=== PATIENT | female | born 1990 | race Caucasian/White ===

== ENCOUNTER 2020-05-29 05:45 | Inpatient (IN) | payer OTHER ==
[~2020-05-29] VITALS: Ht 161.3 cm; Wt 96.8 kg
[2020-05-29] VITALS (54 sets, daily range): BP systolic 98–163; BP diastolic 51–87; PULSE 55–115; TEMP 97.6–99.4
--- NOTE | 2020-05-29 05:45 | NUR ---
PT ARRIVED TO THE UNIT AMBULATORY WITH SPOUSE WITH COMPLAINTS OF CONTRACTIONS. ORIENTED TO ROOM, CHANGED INTO GOWN, EFMX2 APPLIED, VS OBTAINED, SVE PERFORMED.
--- NOTE | 2020-05-29 06:43 | NUR ---
Dr. Bartholomew on unit. Reviews FHR strip. Pt able to ambulate with intermittent monitoring. Pt taken off monitors to BB and ambulate.
[2020-05-29] MEDS ORDERED: OSCAL 500 TAB500 MG PO (07:02)
[2020-05-29] MEDS ORDERED: IRON 27 MG PO (07:06)
--- NOTE | 2020-05-29 07:30 | NUR ---
Pt back to monitors on birthing ball. Requesting epidural. LR bolus infusing.
[2020-05-29] MEDS ORDERED: PRENATAL TABLET PO (07:32)
[2020-05-29] MEDS ORDERED: PRENATAL PO (07:38)
[2020-05-29 07:51] LABS: BASO % 0.4 % (0.0-2.0); EOS # 0.1 (0.0-0.7); EOS % 0.7 % (0-4.0); GRAN # 7.4 (1.4-6.5); GRAN % 69.3 % (42.2-75.2); HEMATOCRIT 37.6 % (37.0-47.0); HEMOGLOBIN 12.9 g/dl (12.5-16.0); LYMPH # 2.2 (1.2-3.4); MEAN CELL VOLUME 90 fl (80.0-100.0); MEAN CORPUSCULAR HEMOGLOBIN 31 pg (27.0-31.0); MEAN CORPUSCULAR HGB CONC 34 g/dl (33.0-37.0); MEAN PLATELET VOLUME 14.3 fl (7.4-10.4); MONO # 0.8 (0.1-0.6); MONO % 7.8 % (1.7-9.3); PLATELET COUNT 107 K/mm3 (130-400); RED BLOOD COUNT 4.17 M/mm3 (4.10-5.30); REDCELL DISTRIBUTION WIDTH-CV 13.9 % (11.5-14.5)
--- NOTE | 2020-05-29 08:15 | NUR ---
Pt sitting upright for epidural placement. Difficulty tracing FHR due to maternal position. Rn at bedside adjusting monitors. FHR audible.
--- NOTE | 2020-05-29 16:00 | NUR ---
Roles on unit since 1400. Reviews FHR strip. 1600-Orders for Ancef 2 g. Physician discusses FHR strip and possible c/s with fever.
--- NOTE | 2020-05-29 16:47 | NUR ---
Scalp stim performed. Acceleration noted.
--- NOTE | 2020-05-29 17:04 | NUR ---
Pt taken off monitors to OR.
[2020-05-30 01:00] VITALS: BP 107/59; PULSE 72; TEMP 98
--- NOTE | 2020-05-30 01:00 | NUR ---
LOOKED OVER MAR WITH CHARGE, Mahamed BARNES RN BECAUSE THERE IS A MEDICATION (GENTAMICIN) THAT WAS SCHEDULE FOR 0500 TODAY, BUT IT SAYS IV Q 8 HOURS AND THE LAST DOSE WAS GIVE AT 1715. Mahamed BARNES RN ADVISED THAT IT WAS OKAY TO GIVE MEDICINE NOW AT 0100 DUE TO THAT BEING 8 HRS FOR THE LAST DOSE. I WAS UNABLE TO MAKE A NOTE ABOUT THIS IN THE MAR, SO I AM DOCUMENTING IT NOW. Onel ROBLEDO RN.
[2020-05-30 04:34] VITALS: BP 115/54; PULSE 91; TEMP 98.3
--- NOTE | 2020-05-30 06:27 | NUR ---
BEDSIDE REPORT RECEIVED FROM OFF GOING RNLEO. CARE TAKEN OVER BY THIS RN. DISCHARGE BOARD UPDATED, POC REVIEWED.
[2020-05-30 06:52] LABS: BASO % 0.3 % (0.0-2.0); EOS # 0.1 (0.0-0.7); EOS % 0.7 % (0-4.0); GRAN # 11.8 (1.4-6.5); GRAN % 79.8 % (42.2-75.2); LYMPH # 1.8 (1.2-3.4); MEAN CELL VOLUME 92 fl (80.0-100.0); MEAN CORPUSCULAR HGB CONC 34 g/dl (33.0-37.0); MEAN PLATELET VOLUME 14.2 fl (7.4-10.4); MONO % 6.7 % (1.7-9.3); PLATELET COUNT 94 K/mm3 (130-400); RED BLOOD COUNT 3.16 M/mm3 (4.10-5.30); REDCELL DISTRIBUTION WIDTH-CV 14.1 % (11.5-14.5)
[2020-05-30 06:59] LABS: HEMATOCRIT 28.9 % (37.0-47.0); HEMOGLOBIN 9.8 g/dl (12.5-16.0); MEAN CORPUSCULAR HEMOGLOBIN 31 pg (27.0-31.0)
[2020-05-30 07:03] VITALS: BP 121/80; PULSE 75; TEMP 97.6
[2020-05-30 11:06] VITALS: BP 116/77; PULSE 76; TEMP 98.1
[2020-05-30 16:18] VITALS: BP 121/59; PULSE 79; TEMP 97.6
[2020-05-30 19:30] VITALS: BP 121/78; PULSE 69; TEMP 98
[2020-05-31 08:08] VITALS: BP 124/63; PULSE 79; TEMP 97.6
--- NOTE | 2020-05-31 08:47 | NUR ---
Initial visit; Patient thanked Finishing Area Operator for offering congratulations for the of her son. Finishing Area Operator thanked patient for choosing [facility].
[2020-05-31] MEDS ORDERED: PERCOCET 325 MG1 TA2 PO (09:42)
[2020-05-31] MEDS ORDERED: MOTRIN 800800 MG/TAB PO (09:42)
[2020-05-31 09:43] LABS: HEMOGLOBIN 10.5 g/dl (12.5-16.0); MEAN CELL VOLUME 94 fl (80.0-100.0); MEAN CORPUSCULAR HEMOGLOBIN 31 pg (27.0-31.0); MEAN CORPUSCULAR HGB CONC 33 g/dl (33.0-37.0); PLATELET COUNT 110 K/mm3 (130-400); RED BLOOD COUNT 3.36 M/mm3 (4.10-5.30); REDCELL DISTRIBUTION WIDTH-CV 14.7 % (11.5-14.5)
[2020-05-31 09:53] LABS: HEMATOCRIT 31.5 % (37.0-47.0)
[2020-05-31 10:32] LABS: BAND 2 % (0-10); EOSINOPHIL 1 % (0-4); LYMPHOCYTE 23 % (20.0-51.0); NEUTROPHILS 71 % (42.0-75.2)
[2020-05-31 10:33] LABS: PLATELET ESTIMATE DECREASED (NORMAL)
[2020-05-31 15:00] VITALS: BP 122/70; PULSE 75; TEMP 98.3
[2020-05-31 20:30] VITALS: BP 135/64; PULSE 64; TEMP 98.4
[2020-06-01 07:00] VITALS: BP 104/54; PULSE 79; TEMP 97.7
[2020-06-01 10:20] VITALS: BP 119/74; PULSE 80; TEMP 98.1
[2020-06-01 16:50] VITALS: BP 128/85; PULSE 82; TEMP 98.4
== END 2020-06-01 17:15 | disposition home or self-care (01) | DRG 786 ==
LOC: LDRO 05:45 → OB 06:16 → LDR 06:16 → OB 19:00
PROVIDERS: Obstetrics & Gynecology; ADMIT Obstetrics & Gynecology
PROC: 10D00Z1 Extraction of Products of Conception, Low, Open Approach (ICD-10-PCS; principal; 2020-05-29)
DX: O62.1 Secondary uterine inertia (principal); O41.1230 Chorioamnionitis, third trimester, not applicable or unspecified; O99.12 Other diseases of the blood and blood-forming organs and certain disorders involving the immune mechanism complicating childbirth; O99.52 Diseases of the respiratory system complicating childbirth; Z3A.39 39 weeks gestation of pregnancy; Z37.0 Single live birth; J45.909 Unspecified asthma, uncomplicated; O69.81X0 Labor and delivery complicated by cord around neck, without compression, not applicable or unspecified; D69.6 Thrombocytopenia, unspecified
CPT/HCPCS: J0290; J0690; J1580; J1885; J2175; J2370; J2400; J2405; J2590; J2704; J2795; J3010; J7120